=== PATIENT | male | born 1975 | race Caucasian/White ===

== ENCOUNTER 2016-07-16 19:13 | Emergency (ER) | payer OTHER ==
[2016-07-16 19:24] VITALS: BMI 35.3
--- NOTE | 2016-07-16 19:45 | DR.GENAD ---
HPI - PCP Primary Care Physician: SOPHIE - HPI Comment HPI Comment: FEW WEEKS OF HEADACHE. NOW LEFT ARM PAIN AND WEAKNESS AND SEING DIFFERENT SHAPES AND LIGHT INT IN BOTH EYS. GETTING WORSE. HAVE POST NASAL DRIP. WEAK AND DIZZY. - Complaint/Symptoms Chief Complaint Doctors Comments: HEADACHE, LUE WEAKNESS AND LEFT ARM PAIN. SEE DIFFERENT LIGHTSAND SHAPES BOTH EYES. Chief Complaint:: BAD HEADACHES - Nurses notes reviewed Nurses Notes Review: Yes - Source History Provided: Patient - Mode of Arrival Mode of Arrival: Ambulatory - Timing Onset of Chief Complaint: 06/16/16 Came on: Gradually - Duration Duration: Constant Duration: Weeks - Severity Severity: Moderate PMH - PMH Past Medical History: No Past Medical History: GERD Past Surgical History: Yes Surgical History: Appendectomy, Ortho Surgery Past Surgical History Comment: 3 HERNIA REPAIRS A CHILD - Family History History of Family Medical Conditions: Yes Family Medical History: Diabetes Mellitus, NC, Hypertension Family Medical History Comment: DAD HAD STROKES AND HEART ATTACKS - Social History Does patient currently use any type of tobacco product: Yes (SMOKELESS) Have you used tobacco products in the last 12 months: Yes Type of Tobacco Use: Smokeless Does any household member use tobacco: No Alcohol Use: None Do you use any recreational Drugs:: No Lives With: Spouse Lives Where: Home - infectious screening In the last 2 months have you had wt loss of >10#?: NO Have you had fever, night sweats or hemotysis?: No Have you traveled outside the country in the last 6 months?: No Isolation: Standard ROS - Review of Systems Constitutional: Weakness (LUE) Eyes: Blurred Vision, Photophobia, Other (SEE VAROUS LIGHTS ABD SHAPES) ENTM: No Symptoms Reported, Nose Congestion (POST NASAL DRIP, MILD). negative: Ear Pain, Nose Discharge, Mouth Pain Respiratoy: Non-Productive Cough, Short of Breath. negative: Wheezing, Hemoptysis Cardiovascular: Other (LEFT ARM PAIN). negative: Chest Pain, Edema, Palpitations Gastrointestinal/Abdominal: Nausea. negative: Abdominal Pain, Vomiting Genitourinary: No Symptoms Reported. negative: Dysuria, Frequency, Hematuria Neurological: Headache, Weakness, Dizziness Musculoskeletal: Muscle Pain Integumentary: No Symptoms Reported Hematologic/Lymphatic: No Symptoms Reported Endocrine: No Symptoms Reported Psychiatric: negative: Anxiety All Other Systems: Reviewed and Negative PE - Vital Signs Vitals: Temperature 99.3 F Pulse Rate 90 Respiratory Rate 16 Blood Pressure [Left Arm] 122/84 Blood Pressure 155/96 O2 Sat by Pulse Oximetry 99 - General Limitations: No Limitations General Appearance: Alert - Head Head Exam: Normal Inspection - Eyes Eye exam: Normal Appearance - ENT ENT Exam: Normal External Ear Exam External Ear Exam: Normal External Inspection TM/Canal Exam: Bilateral Normal Nose Exam: Normal Nose Exam Mouth Exam: Normal Inspection Throat Exam: Normal Inspection - Neck Neck Exam: Trachea Midline. negative: Tenderness, Meningismus, Lymphadenopathy - Chest Chest Inspection: Symmetric Chest Wall Rise - Respiratory Respiratory Exam: Normal Lung Sounds Bilat Respiratory Exam: Bilateral Clear to Auscultation - Cardiovascular Cardiovascular Exam: Regular Rate, Normal Rhythm, Normal Heart Sounds - Abdominal Exam Abdominal Exam: Normal Bowel Sounds, Soft. negative: Tenderness - Extremities Extremities Exam: Normal Inspection - Back Back Exam: Normal Inspection - Neurologic Neurological Exam: Alert, Oriented X3, CN II-XII Intact, Normal Gait, Motor Sensory Deficit (LUE WEAK SLIGHTLY), Reflexes Normal - Psychiatric Psychiatric Exam: Anxious - Skin Skin Exam: Normal Color [facility] - Additional Information Additional Information Obtained From: Family - Differential Diagnosis Differential Diagnosis: CVA, CEREBRAL BLEED, CAD, NC, MIGRAINE HEADACHE. Course - Treatment Treatment: SEE ORDERS - Education/Counseling Education/Counseling: Patient, Family, Education Educated On: Treatment, Diagnosis, Needs for Follow Up ROR - Labs Reviewed Laboratory Results Reviewed?: Yes Result Diagrams: 07/16/16 19:55 07/16/16 19:55 Laboratory: WBC 7.7 X10^3/uL (3.6-10.0) 07/16/16 19:55 RBC 5.44 X10^6/uL (4.7-6.0) 07/16/16 19:55 Hgb 15.4 g/dL (13.5-18.0) 07/16/16 19:55 Hct 45.0 % (42.0-54.0) 07/16/16 19:55 MCV 82.7 fL (80.0-100.0) 07/16/16 19:55 MCH 28.4 pg (27.0-34.0) 07/16/16 19:55 MCHC 34.3 g/dL (33.0-35.0) 07/16/16 19:55 RDW 13.1 % (11.6-16.5) 07/16/16 19:55 Plt Count 209 X10^3/uL (150.0-450.0) 07/16/16 19:55 MPV 8.8 fL (7.4-11.0) 07/16/16 19:55 Neut % 61.1 % (42.0-75.0) 07/16/16 19:55 Lymph % 27.3 % (21.0-51.0) 07/16/16 19:55 Davison % 7.4 % (0.0-13.0) 07/16/16 19:55 Eos % 3.6 % (0.9-2.9) H 07/16/16 19:55 Baso % 0.6 % (0.2-1.0) 07/16/16 19:55 Neut # 4.7 x10^3/uL (2.2-4.8) 07/16/16 19:55 Lymph # 2.1 X10^3/uL (1.3-2.9) 07/16/16 19:55 Davison # 0.6 x10^3/uL (0.3-0.8) 07/16/16 19:55 Eos # 0.3 x10^3/uL (0.0-0.2) H 07/16/16 19:55 Baso # 0.0 X10^3/uL (0.0-0.1) 07/16/16 19:55 Absolute Nucleated RBC 0.1 /100WBC 07/16/16 19:55 Sodium 143 mmol/L (136-145) 07/16/16 19:55 Corrected Sodium TNP 07/16/16 19:55 Potassium 3.8 mmol/L (3.5-5.1) 07/16/16 19:55 Chloride 103 mmol/L (98-107) 07/16/16 19:55 Carbon Dioxide 25.3 mmol/L (21-32) 07/16/16 19:55 BUN 12 mg/dL (7-18) 07/16/16 19:55 Creatinine 1.09 mg/dL (0.70-1.30) 07/16/16 19:55 Est GFR (MDRD) Af Amer > 60 (>60) 07/16/16 19:55 Est GFR (MDRD) Non-Af > 60 (>60) 07/16/16 19:55 Glucose 89 mg/dL (65-99) 07/16/16 19:55 Calcium 9.2 mg/dL (8.5-10.1) 07/16/16 19:55 Corrected Calcium TNP 07/16/16 19:55 Total Bilirubin 0.60 mg/dL (0.2-1.0) 07/16/16 19:55 AST 19 Units/L (15-37) 07/16/16 19:55 ALT 34 Units/L (12-78) 07/16/16 19:55 Alkaline Phosphatase 91 Units/L (46-116) 07/16/16 19:55 Creatine Kinase 125 Units/L (39-308) 07/16/16 19:55 CK-MB (CK-2) 1.5 ng/mL (0-4.0) 07/16/16 19:55 CK/CKMB % Calc 1.2 % (<4) 07/16/16 19:55 Troponin I < 0.02 ng/mL (0-1.5) 07/16/16 19:55 Total Protein 7.8 g/dL (6.4-8.2) 07/16/16 19:55 Albumin 4.3 g/dL (3.4-5.0) 07/16/16 19:55 Globulin 3.5 g/dL (2.5-4.5) 07/16/16 19:55 Albumin/Globulin Ratio 1.2 Ratio (1.1-2.1) 07/16/16 19:55 - XRAY XRAY Interpreted by: Radiologist XRAY Findings: REPORT DISCUSS WITH PATIENT. - EKG Rhythm: NSR (EKG NOTED) - Diagnosis Discharge Problem: Weakness of left upper extremity, Diffuse pain in left upper extremity Headache Qualifiers: Headache type: unspecified Headache chronicity pattern: acute headache Intractability: intractable Qualified Code(s): R51 - Headache Ethmoid sinusitis Qualifiers: Chronicity: acute Recurrence: non-recurrent Qualified Code(s): J01.20 - Acute ethmoidal sinusitis, unspecified - Discharge Plan Disposition: HOME, SELF-CARE Condition: Stable Prescriptions: Amoxicillin & Pot Clavulanate [Augmentin Xr 1000-62.5 mg] 1 tab PO Q12H #20 tab Acmbwdmqjl-Xozgfadetnjjy-Tgtiy [Fioricet 50-300-40 mg] 1 cap PO Q8H PRN #30 cap PRN Reason: Migraine Headache Cetirizine HCl [Zyrtec Tab 10 mg] 10 mg PO DAILY #30 tab - Follow ups/Referrals Follow ups/Referrals: Mendy Bolanos [Primary Care Provider] - 1 day - Instructions Instructions: General Headache Without Cause, Ijex-iz-[id number], Sinusitis, Adult, [id number] Additional Instructions: RETURN TO ED IF WORSE.
[2016-07-16 20:04] LABS: BASOPHILS % (AUTO) 0.6 % (0.2-1.0); EOSINOPHILS # (AUTO) 0.3 x10^3/uL (0.0-0.2); EOSINOPHILS % (AUTO) 3.6 % (0.9-2.9); HEMOGLOBIN 15.4 g/dL (13.5-18.0); LYMPHOCYTES # (AUTO) 2.1 X10^3/uL (1.3-2.9); LYMPHOCYTES % (AUTO) 27.3 % (21.0-51.0); MEAN CORPUSCULAR HEMOGLOBIN 28.4 pg (27.0-34.0); MEAN CORPUSCULAR HGB CONC 34.3 g/dL (33.0-35.0); MEAN CORPUSCULAR VOLUME 82.7 fL (80.0-100.0); MEAN PLATELET VOLUME 8.8 fL (7.4-11.0); MONOCYTES # (AUTO) 0.6 x10^3/uL (0.3-0.8); MONOCYTES % (AUTO) 7.4 % (0.0-13.0); NEUTROPHILS # (AUTO) 4.7 x10^3/uL (2.2-4.8); NEUTROPHILS % (AUTO) 61.1 % (42.0-75.0); PLATELET COUNT 209 X10^3/uL (150.0-450.0); RED BLOOD COUNT 5.44 X10^6/uL (4.7-6.0); RED CELL DISTRIBUTION WIDTH 13.1 % (11.6-16.5); WHITE BLOOD COUNT 7.7 X10^3/uL (3.6-10.0)
[2016-07-16 20:26] LABS: ALANINE AMINOTRANSFERASE 34 Units/L (12-78); ALBUMIN 4.3 g/dL (3.4-5.0); ALKALINE PHOSPHATASE 91 Units/L (46-116); ASPARTATE AMINO TRANSFERASE 19 Units/L (15-37); BLOOD UREA NITROGEN 12 mg/dL (7-18); CALCIUM 9.2 mg/dL (8.5-10.1); CARBON DIOXIDE 25.3 mmol/L (21-32); CHLORIDE 103 mmol/L (98-107); CKMB % 1.2 % (<4); CREATINE KINASE 125 Units/L (39-308); CREATINE KINASE MB 1.5 ng/mL (0-4.0); CREATININE 1.09 mg/dL (0.70-1.30); GLUCOSE 89 mg/dL (65-99); SODIUM 143 mmol/L (136-145); TOTAL PROTEIN 7.8 g/dL (6.4-8.2); TROPONIN I < 0.02 ng/mL (0-1.5); eGFR BLACK RACES > 60 (>60); eGFR NON BLACK RACES > 60 (>60)
--- NOTE | 2016-07-16 20:32 | CT ---
CT head without contrast Indication: Frequent headaches, increasing severity Comparison: None Technique: CT images of the head were obtained without contrast. Automatic exposure control was util ized. Findings: The ventricles and sulci appear normal for patient age. There is no evidence for acute ble ed, generalized or focal edema, or abnormal extra-axial collection. No acute skeletal abnormality is seen. There is moderate mucosal thickening involving the bilateral ethmoid air cells. The remaining major paranasal sinuses and mastoid air cells are otherwise clear. Impression: No acute intracranial abnormality. Ethmoid sinusitis. Reported By:
--- NOTE | 2016-07-16 21:11 | RAD ---
HISTORY: Chest pain. Study: Single-view chest. Comparison: None. Findings: The trachea is midline. The cardiac silhouette is within normal limits. The lungs are clear withou t focal infiltrate or effusion. The bony thorax is unremarkable. IMPRESSION: No acute cardiopulmonary disease. Reported By:
[2016-07-16 21:15] VITALS: BP 122/84
[2016-07-16] MEDS ORDERED: AUGMENTIN XR 1000/62.5MG TAB PO ONE (21:18)
[2016-07-16] MEDS ORDERED: ZYRTEC TAB 10 MG PO ONE (21:24)
[2016-07-16] MEDS ORDERED: AUGMENTIN 500 MG/125 MG TAB PO ONE (21:24)
[2016-07-16] MEDS: ZYRTEC TAB 10 MG PO ONE (21:28)
[2016-07-16] MEDS: FIORICET TAB PO ONE (21:29)
[2016-07-16] MEDS: AUGMENTIN 500 MG/125 MG TAB PO ONE (21:29)
[2016-07-16] MEDS ORDERED: ZYRTEC TAB 10 MG PO SCH (22:00)
[2016-07-16] MEDS ORDERED: AUGMENTIN XR 1000/62.5MG TAB PO SCH (22:00)
[2016-07-17] MEDS ORDERED: AUGMENTIN XR 1000/62.5MG TAB PO ONE (21:03)
== END 2016-07-16 21:33 | disposition home or self-care (01) ==
LOC: ER 19:29
DX: J01.80 Other acute sinusitis (principal); R51 Headache; R53.1 Weakness; M79.602 Pain in left arm
CPT/HCPCS: 36415; 70450; 71010; 80053; 82550; 82553; 84484; 85025; 93005; 93010; 99283